=== PATIENT | male | born 1945 | race African-American/Black ===

== ENCOUNTER → 2017-01-31 | Outpatient (CLI) | payer OTHER ==
[~2017-01-31] MED LIST: ASPIR 8181 M1 PO; Ascorbic Acid,Ester- PO; Coumadin Protocol PO; DAILY VITE1 EAC1 PO; Dulcolax PO; Feosol PO; Folvite PO; Miralax, Glycolax PO; Senokot S,Pericolace PO; TYLENOL REGULA325 MG PO; Theragran PO; Ultram PO
[2017-01-31 08:50] LABS: HEMATOCRIT 38.1 % (38.0-50.0); MCH 30.4 PG (29.0-34.0); MCHC 33.9 G/DL (30.0-36.0); MCV 89.9 FL (86-99); MEAN PLAT.VOLUME 9.6 uM^3 (9.0-12.4); PLATELET COUNT 597 K/uL (156-360); RBC DIS.WIDTH-CV 20.4 % (11.8-14.6); RBC DIS.WIDTH-SD 67.2 % (39-53); RED BLOOD COUNT 4.24 M/uL (4.00-5.50); WHITE BLOOD COUNT 7.2 K/uL (4.1-10.2)
[2017-01-31 08:55] LABS: INTER. NORMALIZED RATIO 1.1; PROTHROMBIN TIME 12.3 SEC (10.2-12.9)
[2017-01-31 08:58] LABS: PTT 32.6 SEC (25-37)
[2017-01-31 09:01] LABS: BASOPHIL COUNT 0.1 K/uL (0-0.1); EOSINOPHIL (%) 2.5 % (0-5); EOSINOPHIL COUNT 0.2 K/uL (0-0.3); IMMATURE GRANULOCYTE (%) 0.8 % (0.0-0.7); IMMATURE GRANULOCYTE COUNT 0.1 K/uL; INSTRUMENT ABS NEUTROPHIL CT 4.3 K/uL; LYMPHOCYTE COUNT 2.1 K/uL (1.0-2.8); MONOCYTE (%) 6.2 % (3-12); MONOCYTE COUNT 0.5 K/uL (0-0.8); NEUTROPHIL (%) 60.3 % (45-76); NEUTROPHIL COUNT 4.3 K/uL (1.8-6.4)
[2017-02-03 10:48] LABS: NUMBER OF MARKERS 22; SPECIMEN VIABILITY 96
== END | disposition home or self-care (01) ==
LOC: OPR 08:12 → EDSTATUS 08:30 → OPR 08:30
PROVIDERS: Internal Medicine Medical Oncology
PROC: 07DR3ZX Extraction of Iliac Bone Marrow, Percutaneous Approach, Diagnostic (ICD-10-PCS; principal; 2017-01-31)
DX: D47.3 Essential (hemorrhagic) thrombocythemia (principal); D50.9 Iron deficiency anemia, unspecified; Z96.643 Presence of artificial hip joint, bilateral; R00.8 Other abnormalities of heart beat
CPT/HCPCS: 77012; 85025; 85610; 85730; J3010